=== PATIENT | female | born 1945 | race Caucasian/White ===

== ENCOUNTER → 2020-10-06 | Outpatient (CLI) | payer MEDICARE, OTHER | LOC: KOH-I 11:27 | DX: M51.36 Other intervertebral disc degeneration, lumbar region (principal); M43.16 Spondylolisthesis, lumbar region | CPT/HCPCS: 72100 ==

== ENCOUNTER → 2021-01-31 | Outpatient (CLI) | payer MEDICARE, OTHER | LOC: KOH-I 01-25 09:15 | DX: R10.11 Right upper quadrant pain (principal); Z90.49 Acquired absence of other specified parts of digestive tract | CPT/HCPCS: 70551; 76705 ==

== ENCOUNTER → 2021-12-25 | Outpatient (CLI) | payer MEDICARE, OTHER | LOC: KOH-I 13:00 | DX: M54.42 Lumbago with sciatica, left side (principal); M43.16 Spondylolisthesis, lumbar region; M43.17 Spondylolisthesis, lumbosacral region | CPT/HCPCS: 72100 ==

== ENCOUNTER → 2022-01-22 | Outpatient (CLI) | payer MEDICARE, OTHER ==
[~2022-01-22] MED LIST: ASPIRIN EC81 MG PO; FLONASE 0.05% N16 GM; GLIMEPIRIDE4 MG PO; HYDROCODON-ACE1 EAC4 PO; LISINOPRIL-HCT1 EAC2 PO; LISINOPRIL-HCT1 EACH PO; METFORMIN HCL1000 MG PO; NAPROXEN500 MG PO; SERTRALINE HCL100 MG PO; TRAMADOL HCL50 MG PO
== END ==
LOC: KOH-I 10:51
DX: M51.36 Other intervertebral disc degeneration, lumbar region (principal)
CPT/HCPCS: 72148

== ENCOUNTER 2022-01-23 15:57 | Inpatient (IN) | payer MEDICARE, OTHER ==
[~2022-01-23] VITALS: Ht 160 cm; Wt 83.9 kg
[2022-01-23 16:33] LABS: HEMOGLOBIN 12.1 gm/dl (12.3-15.3); RED BLOOD COUNT 4.48 M/UL (4.00-5.10); WHITE BLOOD COUNT 8.6 K/UL (4.5-11.0)
[2022-01-23 16:57] LABS: BUN/CREATININE RATIO 22 (0-10)
[2022-01-24] MEDS ORDERED: METFORMIN HCL1000 MG PO (00:21)
[2022-01-24] MEDS ORDERED: LISINOPRIL-HCT1 EACH PO (00:24)
[2022-01-24] MEDS ORDERED: LISINOPRIL-HCT1 EAC2 PO (00:24)
[2022-01-24] MEDS ORDERED: GLIMEPIRIDE4 MG PO (00:28)
[2022-01-24] MEDS ORDERED: NAPROXEN500 MG PO (00:29)
[2022-01-24] MEDS ORDERED: TRAMADOL HCL50 MG PO (00:29)
[2022-01-24] MEDS ORDERED: HYDROCODON-ACE1 EAC4 PO (00:30)
[2022-01-24] MEDS ORDERED: SERTRALINE HCL100 MG PO (00:31)
[2022-01-24] MEDS ORDERED: FLONASE 0.05% N16 GM (00:32)
[2022-01-24] MEDS ORDERED: ASPIRIN EC81 MG PO (00:32)
[2022-01-24 00:58] LABS: HEMOGLOBIN 12.8 gm/dl (12.3-15.3); RED BLOOD COUNT 4.72 M/UL (4.00-5.10); WHITE BLOOD COUNT 9.8 K/UL (4.5-11.0)
--- NOTE | 2022-01-24 10:44 | NUR ---
1041-NOTIFIED MD OF PT HAVING 8 BEAT RUN NSVT. NO NEW ORDERS AT THIS TIME.
[2022-01-25 03:40] LABS: HEMOGLOBIN 11.6 gm/dl (12.3-15.3); RED BLOOD COUNT 4.36 M/UL (4.00-5.10); WHITE BLOOD COUNT 8.1 K/UL (4.5-11.0)
--- NOTE | 2022-01-26 02:12 | NUR ---
PT HAD ASK PRIOR DID SHE HAVE TO WEAR LIEFVEST ALL NIGHT. ADVISED PT SHE DID HAVE TO WEAR VEST ALL NIGHT, WOULD TAKE SOME GETTING USE TOO. APPROX 1930 CAME OUT AND STATES HIS HAD TAKEN THE LIFEVEST OFF AND WASNT GOING TO WEAR IT UNTIL SHE GOT HOME. WENT AND SPOKE WITH THE PT. SHE STATED SHE WAS WEIGHTED DOWN BETWEEN THE LIFEVEST AND ALL OF OUR WIRES AND BOX. SHE ALSO STATED IT WAS MORE TROUBLE TO GET UP AND GO TO THE RESTROOM. ADVISED PT SHE COULD CALL OUT FOR ASSISTANCE TO RESTROOM. PT STATES SHE WASNT PUTTING IT BACK ON TILL TOMMRROW WHEN ALL THE OTHER CORDS ARE TAKEN OFF.
[2022-01-26 06:36] LABS: HEMOGLOBIN 11.8 gm/dl (12.3-15.3); RED BLOOD COUNT 4.42 M/UL (4.00-5.10); WHITE BLOOD COUNT 7.1 K/UL (4.5-11.0)
[2022-01-26] MEDS ORDERED: METOPROLOL SUCC50 MG PO (10:57)
[2022-01-26] MEDS ORDERED: LIPITOR40 MG PO (10:57)
[2022-01-26] MEDS ORDERED: K-TAB ER20 MEQ PO (11:07)
[2022-01-26] MEDS ORDERED: LASIX20 MG PO (11:07)
[2022-01-26] MEDS ORDERED: LISINOPRIL5 MG PO (11:07)
[2022-01-26] MEDS ORDERED: ALDACTONE25 MG PO (11:07)
[2022-01-26] MEDS ORDERED: NITROSTAT0.4 MG SL (11:37)
[2022-01-26] MEDS ORDERED: MAGNESIUM OXID400 M1 PO (11:37)
== END 2022-01-26 13:28 | disposition home or self-care (01) | DRG 286 ==
LOC: ER1 15:57 → CDU 20:50 → MED SURG 4 20:50
PROVIDERS: Emergency Medicine; Internal Medicine; ADMIT Internal Medicine
PROC: B24BZZZ Ultrasonography of Heart with Aorta (ICD-10-PCS; 2022-01-24)
PROC: B2111ZZ Fluoroscopy of Multiple Coronary Arteries using Low Osmolar Contrast (ICD-10-PCS; principal; 2022-01-25)
PROC: 4A023N7 Measurement of Cardiac Sampling and Pressure, Left Heart, Percutaneous Approach (ICD-10-PCS; 2022-01-25)
DX: I11.0 Hypertensive heart disease with heart failure (principal); I50.23 Acute on chronic systolic (congestive) heart failure; I47.1 Supraventricular tachycardia; I42.8 Other cardiomyopathies; E87.6 Hypokalemia; M54.30 Sciatica, unspecified side; I08.3 Combined rheumatic disorders of mitral, aortic and tricuspid valves; Z96.652 Presence of left artificial knee joint; I25.119 Atherosclerotic heart disease of native coronary artery with unspecified angina pectoris; F17.200 Nicotine dependence, unspecified, uncomplicated; M54.9 Dorsalgia, unspecified; E11.9 Type 2 diabetes mellitus without complications; G89.29 Other chronic pain; Z79.4 Long term (current) use of insulin; Z79.01 Long term (current) use of anticoagulants; Z79.82 Long term (current) use of aspirin; Z90.49 Acquired absence of other specified parts of digestive tract; Z82.49 Family history of ischemic heart disease and other diseases of the circulatory system; Z88.0 Allergy status to penicillin; Z91.040 Latex allergy status; Z90.710 Acquired absence of both cervix and uterus
CPT/HCPCS: ECHO; 36415; 71045; 80048; 80053; 82550; 82553; 82962; 83735; 83880; 84132; 84484; 85025; 85027; 85610; 85730; 93005; 93306; 99152; 99153; 99285; C1769; C1887; C1894; J1644; J1650; J1940; J2250; J3010; J7040; Q9965; Q9967